=== PATIENT | female | born 1955 | race Caucasian/White ===

== ENCOUNTER 2016-09-03 07:31 | Day surgery (SDC) | payer OTHER ==
[2016-09-03] MEDS ORDERED: IV START KIT ONE (07:51)
[2016-09-03] MEDS ORDERED: LACTATED RINGERS 0 ML ONE (07:51)
[2016-09-03] MEDS ORDERED: CEFAZOLIN SODIUM 2 GRAM DUPLEX 2 G in Premix (D5W) 50 ml 1 EACH IV PRN (08:12)
[2016-09-03] MEDS ORDERED: POTASSIUM CHLORIDE 20 MEQ in LACTATED RINGERS 1,000 ML IV SCH (08:15)
[2016-09-03] MEDS ORDERED: CEFAZOLIN SODIUM 2 GRAM PREMIX 100 ML IV ONE (08:25)
[2016-09-03] MEDS ORDERED: LACTATED RINGERS 1,000 ML ONE (08:27)
[2016-09-03] MEDS ORDERED: LIDOCAINE 2% (MULTI DOSE) 10 ML VIAL ONE (09:07)
[2016-09-03] MEDS ORDERED: PROPOFOL 20 ML IV ONE ×2 (09:07)
[2016-09-03] MEDS ORDERED: MORPHINE SULFATE (DURAMORPH) 1 MG/ML 10ML AMP ONE (10:07)
[2016-09-03] MEDS ORDERED: SPINAL PROCEDURAL TRAY 1 EACH ONE (10:11)
[2016-09-03] MEDS ORDERED: PUMP TUBING ONE ×2 (10:18→14:30)
[2016-09-03] MEDS ORDERED: FENTANYL 100 MCG/2 ML VIAL ONE ×3 (10:33→13:04)
[2016-09-03] MEDS ORDERED: VASOPRESSIN 20 UNITS/ML VIAL ONE (10:52)
[2016-09-03] MEDS ORDERED: SODIUM CHLORIDE 0.9% 100 ML ONE (10:53)
[2016-09-03] MEDS ORDERED: ESTROGENS,CONJUGATED CREAM 30 G/TUBE VG ONE (10:53)
[2016-09-03] MEDS ORDERED: SULFANILAMIDE 15% CREAM 20 APPLIC/120 G TUBE ONE (10:53)
[2016-09-03] MEDS ORDERED: PROMETHAZINE HCL 25 MG/ML VIAL IM PRN (12:31)
[2016-09-03] MEDS ORDERED: NALOXONE HCL 0.4 MG/ML VIAL IV PRN (12:31)
[2016-09-03] MEDS ORDERED: ATROPINE SULFATE 0.4 MG/1 ML VIAL IV PRN (12:31)
[2016-09-03] MEDS ORDERED: HYDRALAZINE HCL 20 MG/1 ML VIAL IV PRN (12:31)
[2016-09-03] MEDS ORDERED: LABETALOL HCL 5 MG/ML 20ML VIAL IV PRN (12:31)
[2016-09-03] MEDS ORDERED: ONDANSETRON 4 MG/2ML 2 ML VIAL IV PRN ×2 (12:31→13:45)
[2016-09-03] MEDS ORDERED: MEPERIDINE 25 MG/ML SYRINGE IV PRN (12:31)
[2016-09-03] MEDS: FENTANYL 100 MCG/2 ML VIAL IV PRN ×4 (12:38→13:16)
[2016-09-03] MEDS ORDERED: LACTATED RINGERS 1,000 ML IV SCH (12:45)
[2016-09-03] MEDS ORDERED: HYDROMORPHONE HCL 1 MG/ML SYRINGE ONE (13:17)
[2016-09-03] MEDS: HYDROMORPHONE HCL 1 MG/ML SYRINGE IV PRN ×2 (13:20→13:41)
[2016-09-03] MEDS ORDERED: DIPHENHYDRAMINE HCL 50 MG/1 ML VIAL IV PRN (13:45)
[2016-09-03] MEDS ORDERED: MENTHOL/CETYLPYRD 1 EACH LOZENGE PO PRN (13:45)
[2016-09-03] MEDS ORDERED: DOCUSATE SODIUM 100 MG CAPSULE PO PRN (13:45)
[2016-09-03] MEDS ORDERED: BLISTEX LIPSTICK 1 EACH TP PRN (13:45)
[2016-09-03] MEDS ORDERED: MAGNESIUM HYDROXIDE/AL HYDROX 30 ML UDCUP PO PRN (13:45)
[2016-09-03] MEDS ORDERED: BISACODYL 10 MG SUP PR PRN (13:45)
[2016-09-03] MEDS ORDERED: HYDROMORPHONE HCL 1 MG/ML SYRINGE IV PRN (13:45)
[2016-09-03] MEDS ORDERED: ACETAMINOPHEN 325 MG TABLET PO PRN (13:45)
[2016-09-03] MEDS ORDERED: MAG HYDROX/AL HYDROX/SIMETH 30 ML UDCUP PO PRN (13:45)
--- NOTE | 2016-09-03 13:52 | OP ---
Sera Coker [id number] DATE OF PROCEDURE: 09/03/2016 PREOPERATIVE DIAGNOSES: 1. Uterine prolapse. 2. Cystocele. 3. Stress urinary incontinence. POSTOPERATIVE DIAGNOSES: 1. Uterine prolapse. 2. Cystocele. 3. Stress urinary incontinence. PROCEDURE: 1. Total vaginal hysterectomy. 2. Transobturator sling. SURGEON: James Chapa M.D. ASSISTANCE: Oj Orr M.D. ANESTHESIA: General. ESTIMATED BLOOD LOSS: 100 mL. OPERATIVE FINDINGS: Include uterine prolapse with the cervix at the vaginal introitus, stress urinary incontinence, no significant rectocele was noted. The patient had a short vaginal canal of approximately 8 cm. OPERATIVE COURSE: The patient was taken to the operating room and placed under general anesthesia and patient was placed in lithotomy and prepped and draped in a sterile fashion. Bladder was emptied with a straight catheter. The cervix was grasped with a double tooth tenaculum and the cul-de-sac was attempted to enter posteriorly, however, due to the patient's short vaginal canal and tight perineum a episiotomy was made to gain greater exposure and subsequently the cul-de-sac was then successfully entered posteriorly with Delgado scissors. A long weighted speculum was then placed and then the vaginal cuff was incised circumferentially using a scalpel. The bladder was then advanced cephalad and the vesicouterine peritoneum was then identified and incised with Delgado scissors. A Wellington retractor was then placed anteriorly. The left uterosacral ligament was clamped with Lilly clamp, divided, and suture ligated with 0 Vicryl. The procedure was repeated on the right. The right cardinal ligament was then clamped with Lilly clamps, cut, and suture ligated with 0 Vicryl and the same procedure was then repeated on the contralateral side. The left uterine artery was doubly clamped with Lilly clamp, cut, and suture ligated with 0 Vicryl and this was also repeated on the contralateral side. The round ligament on both sides were clamped, cut, and suture ligated. At this point, the sutures of the round ligaments as well as the ureterosacral ligaments were tagged. The uteroovarian ligament and Fallopian tubes were then doubly clamped and cut and this was both to excise the uterine corpus. The pedicles were then sutured ligated with 0 Vicryl and the pedicles were then examined for good hemostasis. The peritoneum was then closed with purse string suture of 0 Vicryl. There was good hemostasis noted at this point. At this point, it appeared that the anterior vaginal mucosa was short measuring approximately 6 cm and that the anterior cystocele was not sufficient to require repair and that the transobturator sling would be able to improve the prolapse of the urethra. The mucosa under the distal urethra was then grasped with two Allis forceps and the mucosa in this area was infiltrated with Pitressin solution. Incision was made longitudinally approximately 2 cm under the urethra and the mucosa was then from the underlying tissue using sharp and blunt dissection. The dissection was carried up bilaterally to the obturator notch and the bladder was then advanced cephalad. Incisions were then made with a #11 blade just superior to the insertion of the adductor longus muscle bilaterally. Using Obtryx trocar the Obtryx mesh sling was then placed in the usual fashion. At this point, a cystoscopy was then performed and there was no mesh noted in the bladder and there was good flow of both ureteral orifices. The cystoscope was then removed and a Grossman catheter was then placed. The mesh was then tensioned and the excess mesh was then excised. The vaginal mucosa with the mesh was then closed with interrupted sutures of 3-0 Vicryl. At this point, the sutures of the round ligament and ureterosacral ligament were then brought out bilaterally at the 1 o'clock and the 11 o'clock positions anteriorly and also at the 8 o'clock and 4 o'clock positions posteriorly. The vaginal cuff was then closed with 3-0 Vicryl in interrupted fashion and the perineum was then closed also with 3-0 Vicryl in a continuous fashion. At this point, vaginal packing was then placed and a pelvic exam revealed good support of the vaginal canal and the rectal exam was also satisfactory with good tone and smooth rectal mucosa was palpated. The inguinal skin incisions were then closed with skin glue and Steri-Strips. The patient tolerated the procedure well and was brought to the recovery room in stable condition. Instrument, needle, and sponge counts were correct. Estimated blood loss was 100 mL. JOB: [id number]
--- NOTE | 2016-09-03 13:56 | HP ---
Sera Coker [id number] DATE OF PROCEDURE: 09/03/2016 PREOPERATIVE DIAGNOSES: 1. Uterine prolapse. 2. Cystocele. 3. Stress incontinence. PROCEDURE: Total vaginal hysterectomy with anterior colporrhaphy, possible posterior colporrhaphy, and transobturator tape sling procedure. HISTORY AND PHYSICAL: The patient is a 61-year-old 1, para 1 who is postmenopausal. Patient states that she had previously been worked up for a pelvic prolapse and stress urinary incontinence in June 2014 at [facility]. The records noted that she had, had urodynamic testing which showed a mixed incontinence. Patient current reports daily urgency as well as stress incontinence, symptoms of leakage with strenuous activity. Patient has had previously a vaginal delivery in 1977 and reports that the baby was 10 pounds. Patient has been having pelvic pressure since 2011 to 2012 as well as stress urinary incontinence especially leaking with activity such as coughing and jumping. Patient states that she needs to wear a pad. Subsequently, after her workup she had been scheduled for surgery, however, subsequently the surgery was not performed due to the patient needing back surgery. The records indicate that a LEEP or trachelectomy with anterior repair with sling was scheduled. PAST MEDICAL HISTORY: Patient has had one prior normal vaginal delivery. She denies any history of abnormal pap smears. Her last pap smear was normal with negative HPV. Patient has history of sinus congestion and gastritis as well as hypothyroidism and hypertension. PAST SURGICAL HISTORY: Includes back surgery. CURRENT MEDICATIONS: Patient is currently takin. Levothyroxine. 2. Chlorthalidone. 3. Trazodone. 4. Lorazepam. 5. Famotidine. 6. Simvastatin. 7. Vitamin B12. 8. Vitamin D3. ALLERGIES: PATIENT REPORTS ALLERGIES INCLUDING ALLERGIES TO LATEX, MOXIFLOXACIN. PATIENT REPORTS HAVING NAUSEA TO CEFPODOXIME, GATIFLOXACIN, LISINOPRIL, NORTRIPTYLINE, WELL STATINS. PHYSICAL EXAMINATION: GENERAL: Patient is alert and appropriate in no apparent distress. HEART: Regular rate and rhythm. LUNGS: Clear to auscultation bilaterally. ABDOMEN: Nontender and nondistended with no masses. PELVIC: Showed normal external genitalia. The vagina is normal with no discharge or lesions noted. There is a 2+ cystocele that was noted. The cervix is closed, smooth, and mobile, it is prolapsed to the introitus and appears elongated with some ectocervical hypertrophy or ectocervical polyp. Uterus is mobile, anteverted, and nontender. There is no adnexal masses or tenderness. Posterior vagina shows a scar from the previous vaginal delivery and there was minimal rectocele. ASSESSMENT AND PLAN: This is a 61-year-old female with mixed urinary incontinence as well as uterine prolapse and cystocele. We plan for a total vaginal hysterectomy with anterior repair and possible posterior repair as well as a transobturator. Procedure, indications, and risks have been reviewed including the risk of bleeding, infection, or injury to bowel, bladder, or other organs. We have discussed the use of transobturator mesh tape for sling procedure as well as the risk for urinary retention as well as mesh erosion. Consent has been reviewed and signed. Preoperative instructions and postoperative expectations have been reviewed. JOB: [id number]
[2016-09-03] MEDS ORDERED: HYDROMORPHONE HCL 2 MG/ML SYRINGE IV PRN (14:09)
[2016-09-03 14:19] VITALS: BMI 11.0
[2016-09-03] MEDS: KETOROLAC TROMETHAMINE 30 MG/ML 1 ML VIAL IV SCH ×2 (14:36→20:49)
[2016-09-03] MEDS ORDERED: TRAZODONE HCL 50 MG TABLET PO PRN (16:43)
[2016-09-03] MEDS: OXYCODONE/ACETAMINOPHEN 5/325 MG TABLET PO PRN ×2 (18:21→23:09)
[2016-09-03] MEDS: FAMOTIDINE 20 MG TABLET PO SCH (20:49)
[2016-09-03] MEDS ORDERED: LORAZEPAM 1 MG TABLET PO SCH (21:00)
[2016-09-03 21:36] LABS: ALB/GLOB RATIO 1.3 (>1.0); ALBUMIN 3.9 gm/dL (3.5-5.7)
[2016-09-04] MEDS: KETOROLAC TROMETHAMINE 30 MG/ML 1 ML VIAL IV SCH ×2 (02:34→07:25)
[2016-09-04] MEDS: OXYCODONE/ACETAMINOPHEN 5/325 MG TABLET PO PRN (03:28)
[2016-09-04 06:40] LABS: HEMATOCRIT 34.5 % (37.0-47.0); HEMOGLOBIN 10.7 gm/l (12.0-16.0); MEAN CELL VOLUME 93.5 fl (81.0-99.0)
[2016-09-04 07:02] LABS: CALCIUM 8.2 mg/dL (8.6-10.3)
[2016-09-04] MEDS ORDERED: LEVOTHYROXINE SODIUM 125 MCG TABLET PO SCH (07:30)
[2016-09-04 07:42] VITALS: BP 96/60
[2016-09-04] MEDS: FAMOTIDINE 20 MG TABLET PO SCH (08:43)
--- NOTE | 2016-09-04 08:50 | PDOC43 ---
- Subjective Subjective: Reports Pain Tolerable (LBP overnight, no vaginal / perineal pain.) , Reports Tolerating PO Regular, Reports Other (Grossman taken out 6am this morning , pt able to void 75cc after.), Denies Shortness of Breath, Denies Nausea, Denies Vomiting, Denies Fever - Objective Vital Signs Temperature 98.7 F 09/04/16 03:20 Pulse Rate 82 09/04/16 03:20 Respiratory Rate 16 09/04/16 03:20 Blood Pressure 96/60 09/04/16 07:39 O2 Saturation by Pulse Oximetry 97 09/04/16 07:39 Oxygen Delivery Method Nasal Cannula Oxygen Flow Rate 2 Laboratory 09/04/16 06:00 09/04/16 06:00 09/04/16 06:00 RBC 3.69 L MCHC 31.0 L Calcium 8.2 L Active Medication Orders Category Date Time Status Acetaminophen [Tylenol] Med 09/03/16 13:45 Active 325 - 650 mg PO Q4H PRN Bisacodyl [Dulcolax] Med 09/03/16 13:45 Active 10 mg [place] DAILY PRN Chlorthalidone [Hygroton] Med 09/04/16 09:00 Active 25 mg PO DAILY Diphenhydramine HCl [Benadryl] Med 09/03/16 13:45 Active 25 mg IV Q6H PRN Docusate Sodium [Colace] Med 09/03/16 13:45 Active 100 mg PO BID PRN Famotidine [Pepcid] Med 09/03/16 21:00 Active 40 mg PO BID Hydromorphone HCl [Dilaudid] Med 09/03/16 13:45 Active 1 - 2 mg IV Q2H PRN Hydromorphone HCl [Dilaudid] Med 09/03/16 14:09 Active 1 - 2 mg IV Q2H PRN Ibuprofen [Motrin] Med 09/04/16 12:28 Active 800 mg PO Q6H PRN Ketorolac Tromethamine [Toradol] Med 09/03/16 13:45 Active 30 mg IV Q6H Levothyroxine Sodium [Levothroid] Med 09/04/16 07:30 Active 125 mcg PO QAMAC Lip [place] [Blistex] Med 09/03/16 13:45 Active 1 each TP PRN PRN Lorazepam [Ativan] Med 09/03/16 21:00 Active 1 mg PO BEDTIME Magnesium Hydroxide/Al Hydrox [Maalox] Med 09/03/16 13:45 Active 30 ml PO Q4H PRN Magnesium/Al Hydrox/Simeth [Maalox Plus] Med 09/03/16 13:45 Active 30 ml PO Q4H PRN Menthol/Cetylpyridinium [Cepacol] Med 09/03/16 13:45 Active 1 each PO PRN PRN Ondansetron 4 mg/2ml Vial [Zofran] Med 09/03/16 13:45 Active 4 mg IV Q4H PRN Oxycodone HCl/Acetaminophen [Percocet 5/325] Med 09/03/16 13:45 Active 1 - 2 tab PO Q4H PRN Sodium Chloride 0.9% Flush [Normal Saline 10ml Flush] Med 09/03/16 13:45 Active 10 - 50 ml IV PRN PRN Sodium Chloride 0.9% Flush [Normal Saline 10ml Flush] Med 09/03/16 17:00 Active 10 ml IV Q8HR Trazodone HCl [Desyrel] Med 09/03/16 16:43 Active 50 mg PO BEDTIME PRN Intake and Output 09/02/16 09/03/16 09/04/16 23:59 23:59 23:59 Intake Total 2520 1611 Output Total 550 1000 Balance 1970 611 General: Afebrile, No Acute Distress Lungs: Clear to Auscultation Bilaterally Cardiovascular: Regular Rate and Rhythm Abdomen: Soft, Normal Bowel Sounds, No Tenderness, No Distention Genitourinary: Vaginal Packing (removed, no active bleeding) - Disposition: Disposition: Anticipate Home Today (ok to discharge today; pt told to hold on BP med -chlorthalidone until next appt; may resume other meds. rx percocet.)
--- NOTE | 2016-09-04 08:52 | PDOC5 ---
Hospital Course: ADMIT DATE: 09/03/16 DISCHARGE DATE: 09/04/16 ADMISSION DIAGNOSES: uterine prolapse, stress urinary incontinence, cystocele PROCEDURES: total vaginal hysterectomy HISTORY OF PRESENT ILLNESS: 61 year old presenting with uterine prolapse, stress urinary incontinence, and cystocele. HOSPITAL COURSE: The patient had a total vaginal hysterectomy, and transobdurator sling. Anterior repair not performed as pt had short vaginal vault and prolapse resolved with TVH. Pt did well overnight and wright catheter removed in AM, as well as vaginal packing. By day of discharge the patient is ambulating, eating, voiding, and passing flatus without difficulty. Pain is controlled. F/u 2 weeks; rx percocet. - Discharge Plan Additional Instructions: Maintain pelvic rest. Report if you have heavy bleeding, worsening pain, or a temperature over 100. Prescriptions: Oxycodone HCl/Acetaminophen [PERCOCET 5/325 MG TABLET (SHF)] 1 - 2 tab PO Q4H PRN #40 tab PRN Reason: Pain Follow-Up: James Chapa MD [Staff Physician] - In 2 weeks
[2016-09-04] MEDS ORDERED: CHLORTHALIDONE 50 MG TABLET PO SCH (09:00)
[2016-09-04] MEDS ORDERED: IBUPROFEN 800 MG TABLET PO PRN (12:28)
--- NOTE | 2016-09-07 11:01 | SURGPATH ---
[facility] [address] [place] [id number] Patient Name: JOHN SPENCER MR#: [id number] : 1955 Gender: F Specimen #: [id number] Collected: 09/03/2016 Received: 09/06/2016 Reported: 09/07/2016 Submitting Phys: ELEN ELLISON Copy To Phys: [facility] URIEL URIBE Clinical History / Pre-Operative Diagnosis: Incomplete Uretrovaginal prolapse Rina Specimen Source / Surgical Procedure Performed: Uterus and cervix Interpretation: UTERUS, HYSTERECTOMY: - CERVIX WITH BENIGN SQUAMOUS METAPLASIA - BENIGN ENDOMETRIAL POLYP - MYOMETRIUM WITH ADENOMYOSIS AND BENIGN LEIOMYOMAS Electronically Signed Out Prosper Amaya M.D. Gross Description: The specimen is received in formalin labeled with the patient's name and "uterus". The specimen consists of an 8.0 x 3.0 x 2.0 cm, 49 g uterus with attached cervix. The 3.2 cm cervix has a patent os. The uterine serosa is smooth. The cervical neck is elongated consistent with prolapse. The flores-brown soft endometrium is 0.1 cm. There is a 0.7 cm white rubbery whorled intramural nodule. There is also a 0.5 x 0.3 x 0.1 cm possible anterior superior endometrial polyp. Rfid Developer tissue is submitted. A-B. anterior uterus and cervix including entire possible endometrial polyp C. posterior uterus and cervix [place], [place] Microscopic Description: Rf[employer] Developer sections of the hysterectomy specimen are examined. The cervix shows benign squamous metaplasia without dysplasia. The endometrium contains a benign endometrial polyp and the endometrium is otherwise atrophic. The myometrium shows adenomyosis and benign leiomyomas. 1: 88814 D25.1
== END 2016-09-04 11:28 | disposition home or self-care (01) ==
LOC: SDC 07:31 → MS 13:45 → SDC 09-04 11:28
PROVIDERS: ATTEND Obstetrics & Gynecology
PROC: 0UT97ZZ Resection of Uterus, Via Natural or Artificial Opening (ICD-10-PCS; principal; 2016-09-03)
PROC: 0UTC7ZZ Resection of Cervix, Via Natural or Artificial Opening (ICD-10-PCS; 2016-09-03)
PROC: 0TSD0ZZ Reposition Urethra, Open Approach (ICD-10-PCS; 2016-09-03)
DX: N81.4 Uterovaginal prolapse, unspecified (principal); N39.46 Mixed incontinence; D25.9 Leiomyoma of uterus, unspecified; N87.9 Dysplasia of cervix uteri, unspecified; N80.0 Endometriosis of uterus; Z79.899 Other long term (current) drug therapy; Z78.0 Asymptomatic menopausal state; Z88.8 Allergy status to other drugs, medicaments and biological substances; Z91.040 Latex allergy status
CPT/HCPCS: 85027; 80048; 80053; 36415; 58260; 57288; A9270 ×10; J1170; J3010 ×3; J2274; J3480; J1885 ×4; J7120 ×3; J7030; J2001; J0690